=== PATIENT | male | born 1990 | race Caucasian/White ===

== ENCOUNTER 2017-04-22 03:12 | Emergency (ER) | payer OTHER, MEDICAID ==
[~2017-04-22] VITALS: Ht 177.8 cm; Wt 70.3 kg
[2017-04-22 03:35] VITALS: BP_SYST 133
[2017-04-22 04:12] VITALS: BP_SYST 127
== END 2017-04-22 04:12 ==
LOC: SED 03:12
DX: Z02.89 Encounter for other administrative examinations (principal); V89.2XXA Person injured in unspecified motor-vehicle accident, traffic, initial encounter; Y93.89 Activity, other specified; Y92.410 Unspecified street and highway as the place of occurrence of the external cause; Y99.8 Other external cause status
CPT/HCPCS: 99283